=== PATIENT | male | born 1980 | race Caucasian/White ===

== ENCOUNTER 2016-10-12 14:12 | Emergency (ER) | payer OTHER ==
--- NOTE | 2016-10-12 14:47 | ED Physician Documentation ---
History of Present Illness - Stated complaint Stated Complaint: CHEST TIGHTNESS /SOA - Chief complaint Chief Complaint: Cardiac - Additonal information Additional information: hx from pt 36 male prior smoker, fhx CAD but late onset L shoulder pain for a week toda awoke 7 Am with substernal throbbing chest pressure rad to throat and back , some SOA, some palp no fever cough no abd pain NV no LE edema but his job entails sitting for long periods Review of Systems Constitutional: denies: Fever, Chills Throat: denies: Sore throat Cardiac: reports: Chest pain / pressure Respiratory: denies: Dyspnea, Cough GI: denies: Abdominal Pain, Nausea, Vomiting Musculoskeletal: denies: Extremity pain, Extremity swelling Neurologic: denies: Generalized weakness Endocrine: denies: Easy bruising / bleeding Immunocompromised: denies: Immunocompromised PD PAST MEDICAL HISTORY - Past Medical History GI: GERD, Other : Kidney stones - Past Surgical History Past Surgical History: Yes HEENT: Tonsil/Adenoidectomy - Present Medications Home Medications: Ambulatory Orders Medication Instructions Recorded Confirmed Cetirizine HCl/Pseudoephedrine 1 tab PO DAILY 10/12/16 10/12/16 [Zyrtec-D Tablet] - Allergies Allergies/Adverse Reactions: Allergies Allergy/AdvReac Type Severity Reaction Status Date / Time hydromorphone HCl * Allergy Itching Verified 10/12/16 14:19 [From Dilaudid] - Social History Does the pt smoke?: No Smoking Status: Former smoker Does the pt drink ETOH?: Yes Does the pt have substance abuse?: No - Immunizations Immunizations are current?: Yes - POLST Patient has POLST: No PD ED PE NORMAL - Vitals Vital signs reviewed: Yes - General General: Alert and oriented X 3 - HEENT HEENT: Atraumatic - Neck Neck: Supple, no meningeal sign - Cardiac Cardiac: RRR - Respiratory Respiratory: No respiratory distress, Clear bilaterally - Abdomen Abdomen: Soft, Non tender - Extremities Extremities: No deformity, Normal ROM s pain, No edema, No calf tenderness / cord - Neuro Neuro: Alert and oriented X 3 Results - Vitals Vitals: Vital Signs - 24 hr 10/12/16 10/12/16 10/12/16 14:15 15:05 15:13 Temperature 36.8 C Heart Rate 96 82 95 Respiratory 15 14 20 Rate Blood Pressure 144/91 H 116/86 H 117/76 O2 Saturation 99 95 96 10/12/16 10/12/16 15:18 17:41 Temperature 36.4 C L Heart Rate 106 H 80 Respiratory 20 Rate Blood Pressure 113/82 H 111/81 H O2 Saturation 93 98 Oxygen O2 Source Room air - EKG (time done) 1421 Rate: Rate (enter#) Rhythm: NSR Intervals: Normal [place] QRS: Normal Ischemia: Normal ST segments - Labs Labs: Laboratory Tests 10/12/16 10/12/16 10/12/16 14:25 14:25 14:25 WBC 9.8 RBC 5.60 Hgb 16.7 Hct 49.0 MCV 87.5 MCH 29.8 MCHC 34.1 RDW 13.1 Plt Count 221 MPV 8.5 Neut # 7.7 H Lymph # 1.3 L [place] # 0.6 Eos # 0.1 Baso # 0.1 Absolute Nucleated RBC 0.00 Nucleated RBCs 0.0 Sodium 135 Potassium 4.0 Chloride 101 Carbon Dioxide 26 Anion Gap 8.0 BUN 12 Creatinine 1.1 Estimated GFR (MDRD) 76 L Glucose 92 Calcium 9.5 Total Bilirubin 0.7 AST 21 ALT 18 Alkaline Phosphatase 65 Troponin I < 0.04 Total Protein 7.6 Albumin 4.6 Globulin 3.0 Albumin/Globulin Ratio 1.5 Lipase 14 L 10/12/16 16:30 WBC RBC Hgb Hct MCV MCH MCHC RDW Plt Count MPV Neut # Lymph # [place]he # Eos # Baso # Absolute Nucleated RBC Nucleated RBCs Sodium Potassium Chloride Carbon Dioxide Anion Gap BUN Creatinine Estimated GFR (MDRD) Glucose Calcium Total Bilirubin AST ALT Alkaline Phosphatase Troponin I < 0.04 Total Protein Albumin Globulin Albumin/Globulin Ratio Lipase - Rads (name of study) CTPA Radiology: See rad report (no PE no dissection ) Departure - Departure Disposition: 01 Home, Self Care Clinical Impression: Chest pain Condition: Good Instructions: ED Chest Pain Atypical Unkn Cause Comments: All your tests came back fine except the CT scan showed some left ventricular hypertrophy (thickening of the muscle wall) Your EKG and two sets of blood tests for your heart do not suggest a heart attack The CT scan did not show a blood clot in your lungs nor an aneurysm or tear of your aorta. I am not certain what did cause your pain given the reassuring work up and since you feel better now, I think it is safe for you to go home Please follow up with your PMD to discuss getting a stress test and an echocardiogram - given your family history of heart problems these would be a good screening tests for you Return if worse
[2016-10-12] MEDS ORDERED: ASPIRIN CHEW 81 MG TABLET PO STA (14:48)
[2016-10-12] MEDS ORDERED: NITROGLYCERIN SL 0.4 MG TABLET SL STA (14:49)
[2016-10-12] MEDS ORDERED: NITROGLYCERIN SL 0.4 MG TABLET SL ONE ×2 (15:06→15:11)
[2016-10-12] MEDS ORDERED: ASPIRIN CHEW 81 MG TABLET ONE ×2 (15:11→15:16)
[2016-10-12 15:18] LABS: BASOPHILS # (AUTO) 0.1 10^3/uL (0.0-0.1); BASOPHILS % (AUTO) 0.5 %; EOSINOPHILS # (AUTO) 0.1 10^3/uL (0.0-0.7); HGB - HEMOGLOBIN 16.7 g/dL (14.0-18.0); LYMPHOCYTES # (AUTO) 1.3 10^3/uL (1.5-3.5); LYMPHOCYTES % (AUTO) 13.4 %; MEAN CORPUSCULAR HEMOGLOBIN 29.8 pg (27.0-31.0); MEAN CORPUSCULAR HGB CONC 34.1 g/dL (32.0-36.0); MEAN CORPUSCULAR VOLUME 87.5 fL (80.0-94.0); MEAN PLATELET VOLUME 8.5 fL (7.4-11.4); MONOCYTES # (AUTO) 0.6 10^3/uL (0.0-1.0); MONOCYTES % (AUTO) 6.4 %; NEUTROPHILS # (AUTO) 7.7 10^3/uL (1.5-6.6); NEUTROPHILS % (AUTO) 78.7 %; RED CELL DISTRIBUTION WIDTH 13.1 % (12.0-15.0); UNCORRECTED WHITE BLOOD COUNT 9.8 x10^3/uL; WHITE BLOOD COUNT 9.8 x10^3/uL (4.8-10.8)
[2016-10-12 15:22] LABS: ALBUMIN/GLOBULIN RATIO 1.5 (1.0-2.2); BILIRUBIN,TOTAL 0.7 mg/dL (0.2-1.0); CALCIUM 9.5 mg/dL (8.5-10.3); CREATININE 1.1 mg/dL (0.6-1.2); TOTAL PROTEIN 7.6 g/dL (6.7-8.2)
--- NOTE | 2016-10-12 15:46 | XRAY Preliminary Report ---
Exam: XR Chest 2 View PA/LAT IMPRESSION: No acute disease. [facility] SITE ID: [id number]
--- NOTE | 2016-10-12 15:48 | XRAY Report ---
EXAM: CHEST RADIOGRAPHY EXAM DATE: 10/12/2016 03:35 PM. CLINICAL HISTORY: Cp. COMPARISON: None. TECHNIQUE: 2 views. FINDINGS: Lungs/Pleura: No localized infiltrate, consolidation, effusion, or pneumothorax. Mediastinum: Heart and mediastinal contours are unremarkable. Upper lobe vessels not distended. Other: None. IMPRESSION: No acute disease. [facility] Referring Provider Line: [phone] SITE ID: [id number]
[2016-10-12] MEDS ORDERED: IOPAMIDOL-300 100 ML VIAL IVP ONE (17:17)
--- NOTE | 2016-10-12 17:53 | CT Preliminary Report ---
Exam: CT Chest Angio (AORTA) IMPRESSION: 1. Negative for aneurysm, dissection, or pulmonary emboli. No acute disease. 2. Left ventricular hypertrophy. Normal overall heart size. [facility] SITE ID: [id number]
--- NOTE | 2016-10-12 17:55 | CT Report ---
EXAM: CT ANGIOGRAM CHEST EXAM DATE: 10/12/2016 05:17 PM. CLINICAL HISTORY: Severe throbbing CP rad to back eval aorta. COMPARISON: None. TECHNIQUE: Routine helical imaging was performed through the chest in the arterial phase. IV contrast : 100 cc Isovue-300. Reconstructions: Coronal, sagittal, and 3D MIP. FINDINGS: Vascular Structures: Mildly prominent ascending thoracic aorta measuring 3.5 cm. No aneurysm, dissect ion, or significant atherosclerotic disease of the thoracic aorta. The visualized pulmonary arteries are within normal limits. Lungs/Pleura: No consolidation, nodules, or edema. No effusions or pneumothorax. Mediastinum: Normal overall heart size. Left ventricular wall thickening measuring about 18 or 19 mm. No pericardial effusion. No lymphadenopathy. Upper Abdomen: Unremarkable. Other: Mild bilateral gynecomastia. IMPRESSION: 1. Negative for aneurysm, dissection, or pulmonary emboli. No acute disease. 2. Left ventricular hypertrophy. Normal overall heart size. [facility] Referring Provider Line: [phone] SITE ID: [id number]
[2016-10-12 18:36] VITALS: BP 138/78
== END 2016-10-12 18:32 | disposition home or self-care (01) ==
LOC: ED 14:12
DX: R07.89 Other chest pain (principal); Z82.49 Family history of ischemic heart disease and other diseases of the circulatory system; Z87.891 Personal history of nicotine dependence
CPT/HCPCS: 36415; 71020; 71275; 80053; 83690; 84484; 85025; 93005; 99284; A9270; Q9967

== ENCOUNTER 2016-10-13 17:21 | Outpatient (CLI) | payer OTHER | END 2016-10-13 17:22 | disposition short-term general hospital (02) | LOC: EMS 17:21 | PROVIDERS: ATTEND Surgery | DX: R07.9 Chest pain, unspecified (principal) | CPT/HCPCS: A0425; A0427 ==

== ENCOUNTER 2017-12-20 17:47 | Outpatient (CLI) | payer OTHER ==
--- NOTE | 2017-12-20 18:20 | XRAY Report ---
Reason: FALL ON SHOULDER, SWELLING, BRUISING, LIMITED ROM Procedure Date: 12/20/2017 Accession Number: [id number] / [id number] Procedure: XR - Shoulder 3 View LT CPT Code: FULL RESULT: EXAM: LEFT SHOULDER RADIOGRAPHY EXAM DATE: 12/20/2017 06:03 PM. CLINICAL HISTORY: FALL ON SHOULDER, SWELLING, BRUISING, LIMITED ROM. COMPARISON: SHOULDER 3 VIEW LT 02/09/2013 3:01 PM. TECHNIQUE: 3 views. FINDINGS: No acute fracture or dislocation. The glenohumeral joint is intact. There is mild widening of the acromioclavicular interval. No significant elevation or depression of the distal clavicle relative to the acromion. Soft tissues are unremarkable. IMPRESSION: No acute fracture of the left shoulder. Possible ligamentous injury to the acromioclavicular joint. Correlation with focal tenderness on physical exam recommended. [facility]
== END 2017-12-20 17:48 | disposition home or self-care (01) ==
LOC: DI 17:47
PROVIDERS: ATTEND Registered Nurse
DX: S49.92XA Unspecified injury of left shoulder and upper arm, initial encounter (principal)

== ENCOUNTER 2018-12-05 14:50 | Outpatient (CLI) | payer OTHER | END 2018-12-05 14:51 | disposition critical access hospital (66) | LOC: EMS 14:50 | PROVIDERS: ATTEND Surgery | DX: R40.0 Somnolence (principal); R09.89 Other specified symptoms and signs involving the circulatory and respiratory systems | CPT/HCPCS: A0425; A0427 ==

== ENCOUNTER 2018-12-05 15:29 | Emergency (ER) | payer OTHER ==
[2018-12-05 15:57] LABS: MUDS CUTOFF CONCENTRATIONS CUTOFF CONC BELOW:
--- NOTE | 2018-12-05 15:57 | ED Physician Documentation ---
PD HPI MHE - Stated complaint Stated Complaint: ETOH - Chief complaint Chief Complaint: MHE - History obtained from History obtained from: Patient - History of Present Illness Primary symptom: Other ('upset'). No: Suicidal ideation, Suicide attempt Recently seen: Not recently seen - Additional information Additional information: This is a 38-year-old who presents by ambulance with complaints that he is "sad and got upset". He will not answer any questions for me about what happened and why he is upset. He says that he has drank "a little more than a little" alcohol today denies ingesting any medications in an attempt to harm himself although family members indicate that he had told them he had ingested something. Apparently he recently lost someone is very close to him. He works as a network operations manager. He has not recently been ill. Review of Systems Unable to obtain: Uncooperative PD PAST MEDICAL HISTORY - Past Medical History GI: GERD, Other : Kidney stones - Past Surgical History Past Surgical History: Yes HEENT: Tonsil/Adenoidectomy - Present Medications Home Medications: Ambulatory Orders Medication Instructions Recorded Confirmed Cetirizine HCl/Pseudoephedrine 1 tab PO DAILY 10/12/16 10/12/16 [Zyrtec-D Tablet] LORazepam [Ativan] 1 mg PO Q6H PRN #25 tablet 12/06/18 Promethazine [Phenergan] 25 mg PO Q6H PRN #10 tab 12/06/18 - Allergies Allergies/Adverse Reactions: Allergies Allergy/AdvReac Type Severity Reaction Status Date / Time hydromorphone HCl * Allergy Itching Verified 10/12/16 14:19 [From Dilaudid] - Social History Does the pt smoke?: No Smoking Status: Former smoker Does the pt drink ETOH?: Yes Does the pt have substance abuse?: No - Immunizations Immunizations are current?: Yes - POLST Patient has POLST: No PD ED PE NORMAL - Vitals Vital signs reviewed: Yes - General General: Alert and oriented X 3, Well developed/nourished, Other (Smells strongly of alcohol. Tearful) - HEENT HEENT: Atraumatic, PERRL, EOMI, Other (Dry mucous membranes) - Neck Neck: Thyroid normal - Cardiac Cardiac: RRR, No murmur - Respiratory Respiratory: No respiratory distress, Clear bilaterally - Abdomen Abdomen: Normal bowel sounds, Soft, Non tender, Non distended, No organomegaly - Derm Derm: Normal color, Warm and dry, No rash - Extremities Extremities: No deformity, No edema - Neuro Neuro: kaiawhina 2-12 intact, No motor deficit, No sensory deficit, Normal speech - Psych Psych: Other (Depressed mood with crying) Results - Vitals Vitals: Vital Signs - 24 hr 12/06/18 12/06/18 12/06/18 07:06 07:23 08:21 Temperature Heart Rate 77 94 84 Respiratory 22 18 16 Rate Blood Pressure 98/57 L 139/75 H O2 Saturation 96 96 95 12/06/18 12/06/18 09:53 11:00 Temperature 36.8 C 36.5 C Heart Rate 83 80 Respiratory 20 18 Rate Blood Pressure 124/79 123/78 O2 Saturation 97 97 Oxygen O2 Source Room air - EKG (time done) 1544 Rate: Rate (enter#) Rhythm: NSR Intervals: Normal MI Ischemia: Normal ST segments Compare to prior EKG: Old EKG unavailable Computer interpretation: Agree with computer - Labs Labs: Laboratory Tests 12/05/18 12/05/18 12/05/18 15:42 15:56 15:56 WBC 9.3 RBC 5.85 Hgb 18.2 H Hct 53.9 H MCV 92.1 MCH 31.1 H MCHC 33.8 RDW 12.8 Plt Count 316 MPV 9.6 Neut # (Auto) 6.6 Lymph # (Auto) 1.9 Logan # (Auto) 0.6 Eos # (Auto) 0.1 Baso # (Auto) 0.1 Absolute Nucleated RBC 0.00 Nucleated RBC % 0.0 Sodium 144 Potassium 4.0 Chloride 103 Carbon Dioxide 22 Anion Gap 19.0 H BUN 11 Creatinine 1.1 Estimated GFR (MDRD) 75 L Glucose 66 L Calcium 9.3 Total Bilirubin 1.3 H AST 52 H ALT 41 Alkaline Phosphatase 68 Total Protein 7.6 Albumin 4.8 Globulin 2.8 Albumin/Globulin Ratio 1.7 Lipase 27 TSH Urine Color YELLOW Urine Clarity CLEAR Urine pH 6.5 Ur Specific [place] <=1.005 Urine Protein NEGATIVE Urine Glucose (UA) NEGATIVE Urine Ketones NEGATIVE Urine Occult Blood NEGATIVE Urine Nitrite NEGATIVE Urine Bilirubin NEGATIVE Urine Urobilinogen 0.2 (NORMAL) Ur Leukocyte Esterase NEGATIVE Ur Microscopic Review NOT INDICATED Urine Culture Comments NOT INDICATED Salicylates < 6.0 Urine Opiates Screen NEGATIVE Ur Oxycodone Screen NEGATIVE Urine Methadone Screen NEGATIVE Ur Propoxyphene Screen NEGATIVE Acetaminophen < 10 L Ur Barbiturates Screen NEGATIVE Ur Tricyclics Screen NEGATIVE Ur Phencyclidine Scrn NEGATIVE Ur Amphetamine Screen NEGATIVE U Methamphetamines Scrn NEGATIVE U Benzodiazepines Scrn NEGATIVE Urine Cocaine Screen POSITIVE H U Cannabinoids Screen NEGATIVE Ethyl Alcohol 374.3 12/05/18 12/06/18 15:56 07:08 WBC RBC Hgb Hct MCV MCH MCHC RDW Plt Count MPV Neut # (Auto) Lymph # (Auto) Logan # (Auto) Eos # (Auto) Baso # (Auto) Absolute Nucleated RBC Nucleated RBC % Sodium Potassium Chloride Carbon Dioxide Anion Gap BUN Creatinine Estimated GFR (MDRD) Glucose Calcium Total Bilirubin AST ALT Alkaline Phosphatase Total Protein Albumin Globulin Albumin/Globulin Ratio Lipase TSH 0.29 L Urine Color Urine Clarity Urine pH Ur Specific [place] Urine Protein Urine Glucose (UA) Urine Ketones Urine Occult Blood Urine Nitrite Urine Bilirubin Urine Urobilinogen Ur Leukocyte Esterase Ur Microscopic Review Urine Culture Comments Salicylates Urine Opiates Screen Ur Oxycodone Screen Urine Methadone Screen Ur Propoxyphene Screen Acetaminophen Ur Barbiturates Screen Ur Tricyclics Screen Ur Phencyclidine Scrn Ur Amphetamine Screen U Methamphetamines Scrn U Benzodiazepines Scrn Urine Cocaine Screen U Cannabinoids Screen Ethyl Alcohol 38.5 PD MEDICAL DECISION MAKING - ED course Complexity details: reviewed results, re-evaluated patient, d/w patient, d/w family ED course: Patient CBC is normal. His blood glucose is 66 we will see if he will eat something. Mild elevation of AST. His TSH is a little low at 0.29. His blood alcohol levels 370 and drug screens positive for cocaine. Patient has an IV going with IV fluids and will need to be reevaluated when he is no longer intoxicated, which will be several hours from now. The patient's friend did bring in his phone that show the text messages stating that he had intentionally tried to harm himself. He was placed on a hold by social media marketing analyst until he can be evaluated when he is no longer intoxicated. Patient reports that he does not want to eat. He wants to be discharged because he feels like he is taking up a bed and someone needs more importantly than him. We discussed that he will need to stay until the morning and he is agreeable. I did put him on D5 half-normal since he will not eat. Patient pulled out his IV and we could not hang the D5 half-normal because he refused to have it restarted. An Accu-Chek was done that showed 66 and he did agree to eat a sandwich and drink some juice. Care turned over to Dr Farley awaiting patient to sober up. Departure - Departure Disposition: 01 Home, Self Care Clinical Impression: Depression, Alcoholic intoxication, Suicidal ideation Condition: Stable Instructions: ED Depression, ED Alcohol Intoxication Follow-Up: Nicole Anthony ARNP [Primary Care Provider] - Prescriptions: LORazepam [Ativan] 1 mg PO Q6H PRN #25 tablet PRN Reason: Alcohol Withdrawal Promethazine [Phenergan] 25 mg PO Q6H PRN #10 tab PRN Reason: Nausea / Vomiting Comments: Avoid excess alcohol. Preferably try to stop drinking and seek help for alcohol cessation through treatment programs and AA. If you decide to stop drinking, to help with the withdrawal symptoms I wrote a prescription for some Ativan to use every 6 hours as needed to help with the tremors and withdrawal. Add promethazine if needed for nausea. Stay well-hydrated. Use the Ativan to the degree you need to help decrease withdrawal symptoms but not to become sedated. Try to decrease the amount used over several days to week as you overcome the withdrawal time.. Follow-up with your primary care regarding further treatment of that. Follow-up with counseling to help with your depression. Discharge Date/Time: 12/06/18 11:15
[2018-12-05 16:01] LABS: BASOPHILS # (AUTO) 0.1 10^3/uL (0.0-0.1); BASOPHILS % (AUTO) 1.2 %; EOSINOPHILS # (AUTO) 0.1 10^3/uL (0.0-0.7); EOSINOPHILS % (AUTO) 1.5 %; HGB - HEMOGLOBIN 18.2 g/dL (14.0-18.0); LYMPHOCYTES # (AUTO) 1.9 10^3/uL (1.5-3.5); LYMPHOCYTES % (AUTO) 20.4 %; MEAN CORPUSCULAR HEMOGLOBIN 31.1 pg (27.0-31.0); MEAN CORPUSCULAR HGB CONC 33.8 g/dL (32.0-36.0); MEAN CORPUSCULAR VOLUME 92.1 fL (80.0-94.0); MEAN PLATELET VOLUME 9.6 fL (7.4-11.4); MONOCYTES # (AUTO) 0.6 10^3/uL (0.0-1.0); NEUTROPHILS # (AUTO) 6.6 10^3/uL (1.5-6.6); NEUTROPHILS % (AUTO) 70.5 %; PLT - PLATELET COUNT 316 10^3/uL (130-450); RED BLOOD COUNT 5.85 10^6/uL (4.70-6.10); RED CELL DISTRIBUTION WIDTH 12.8 % (12.0-15.0); WHITE BLOOD COUNT 9.3 x10^3/uL (4.8-10.8)
[2018-12-05 16:04] LABS: BILIRUBIN,URINE NEGATIVE (NEGATIVE); GLUCOSE, URINE (UA) NEGATIVE (NEGATIVE); KETONES,URINE (UA) NEGATIVE (NEGATIVE); LEUKOCYTE ESTERASE, URINE NEGATIVE (NEGATIVE); NITRITE,URINE NEGATIVE (NEGATIVE); OCCULT BLOOD,URINE NEGATIVE (NEGATIVE); PH,URINE 6.5 PH (5.0-7.5); PROTEIN,URINE NEGATIVE (NEGATIVE); UROBILINOGEN,URINE 0.2 (NORMAL) E.U./dL (NORMAL)
[2018-12-05 16:08] LABS: CLARITY,URINE CLEAR (CLEAR)
[2018-12-05 16:16] LABS: ACETAMINOPHEN < 10 ug/mL (10-30); ALBUMIN 4.8 g/dL (3.2-5.5); ALBUMIN/GLOBULIN RATIO 1.7 (1.0-2.2); ALKALINE PHOSPHATASE 68 IU/L (42-121); ALT ALANINE AMINOTRANSFERASE 41 IU/L (10-60); AST ASPARTATE AMINOTRANSFERASE 52 IU/L (10-42); BILIRUBIN,TOTAL 1.3 mg/dL (0.2-1.0); BUN - BLOOD UREA NITROGEN 11 mg/dL (6-20); CALCIUM 9.3 mg/dL (8.5-10.3); CARBON DIOXIDE - CO2 22 mmol/L (21-32); CHLORIDE 103 mmol/L (101-111); CREATININE 1.1 mg/dL (0.6-1.2); GFR - MDRD 75 (>89); GLUCOSE 66 mg/dL (70-100); LIPASE 27 U/L (22-51); SALICYLATE < 6.0 mg/dL; SODIUM 144 mmol/L (135-145); TOTAL PROTEIN 7.6 g/dL (6.7-8.2)
[2018-12-05 16:19] LABS: AMPHETAMINE SCREEN,URINE NEGATIVE (NEGATIVE); BENZODIAZEPINES SCREEN, URINE NEGATIVE (NEGATIVE); COCAINE SCREEN URINE POSITIVE (NEGATIVE); METHADONE SCREEN, URINE NEGATIVE (NEGATIVE); METHAMPHETAMINES SCREEN, URINE NEGATIVE (NEGATIVE); OPIATE SCREEN, URINE NEGATIVE (NEGATIVE); OXYCODONE SCREEN, URINE NEGATIVE (NEGATIVE); PROPOXYPHENE SCREEN, URINE NEGATIVE (NEGATIVE); TRICYCLIC ANTIDEPRESSANT,URINE NEGATIVE (NEGATIVE)
[2018-12-05] MEDS ORDERED: DEXTROSE 5%-0.45% NACL 1,000 ML IV ONE (20:29)
[2018-12-06] MEDS ORDERED: ONDANSETRON ODT 4 MG TABLET TL STA (07:54)
[2018-12-06] MEDS ORDERED: FAMOTIDINE 20 MG TABLET PO STA (07:54)
[2018-12-06] MEDS ORDERED: LORazepam 1 MG TABLET PO STA (09:05)
[2018-12-06] MEDS ORDERED: LORazepam 2 MG/ML VIAL IM STA (09:56)
[2018-12-06] MEDS ORDERED: cloNIDine 0.1 MG TABLET PO STA (09:56)
[2018-12-06] MEDS ORDERED: PROMETHAZINE 25 MG TABLET PO STA (09:57)
--- NOTE | 2018-12-06 10:23 | ED Physician Documentation ---
ED Addendum - Addendum Addendum: 12/06/18 10:21 The patient is sober now. He started to have some tremors and will be given some Ativan. He was seen by social work and denies any suicidal ideation at this time. He does not feel that he is ready to stop drinking regularly. He will be given information regarding alcohol treatment programs in the area. I offered him a prescription for Ativan should he decide to try to stop drinking in the short-term. He is suggested to avoid excess alcohol at his as it is a mood enhancer and will worsen his depression. He is offered to seek counseling and primary care treatment. He will be given information by social work. Diagnoses alcohol intoxication #2 depression #3 suicidal ideation, improved Disposition the patient be discharged home in stable condition.
[2018-12-06 11:01] VITALS: BP 123/78
== END 2018-12-06 11:15 | disposition home or self-care (01) ==
LOC: EDUNIT# → ED 15:29
DX: F32.9 Major depressive disorder, single episode, unspecified (principal); R45.851 Suicidal ideations; F10.929 Alcohol use, unspecified with intoxication, unspecified; Y90.8 Blood alcohol level of 240 mg/100 ml or more; F14.90 Cocaine use, unspecified, uncomplicated; R25.1 Tremor, unspecified; Z87.891 Personal history of nicotine dependence
CPT/HCPCS: 36415; 80320; 80329; 81003; 83690; 93005; 99281; 99284; A9270; J2060; J8499; Q0162; Q0169; 80053; 80306; 80307; 81001; 84443; 85025; 87086

== ENCOUNTER 2020-06-24 15:31 | Outpatient (CLI) | payer OTHER | END 2020-06-24 15:32 | disposition critical access hospital (66) | LOC: EMS 15:31 | DX: T17.290A Other foreign object in pharynx causing asphyxiation, initial encounter (principal) | CPT/HCPCS: A0425; A0429 ==

== ENCOUNTER 2020-06-24 15:57 | Emergency (ER) | payer OTHER ==
--- OUTSIDE RECORDS SUMMARY | 2020-06-24 16:29 | EXTERNAL MEDICAL SUMMARY RPT | Continuity of Care Document ---
:1980 Demographics Phone Unavailable Preferred Language Unknown Marital Status Unknown [employer] Affiliation Unknown Race Unknown Ethnic Group Unknown Author Organization [facility] Address [address] [id number] Phone Social History date description facility [id number]
[2020-06-24] MEDS ORDERED: SODIUM CHLORIDE 0.9% 1,000 ML IV STA (16:32)
[2020-06-24] MEDS ORDERED: GLUCAGON 1 MG/ML VIAL IVP STA (16:33)
--- NOTE | 2020-06-24 16:33 | ED Physician Documentation ---
History of Present Illness - Stated complaint Stated Complaint: POST CHOKING - Chief complaint Chief Complaint: General - History obtained from History obtained from: Patient, EMS - Additonal information Additional information: 39-year-old with chronic constipation was taking his usual 10 caplets of 500 mg of Metamucil all at once today and felt like it got stuck. Now he is not able to tolerate his secretions but able to talk fine. This happened last year and he was able to fix it with drinking a big jug of water. He did not need to seek medical attention at that time. No health problems. Review of Systems Constitutional: denies: Fever, Chills Cardiac: denies: Palpitations Respiratory: denies: Dyspnea, Cough PD PAST MEDICAL HISTORY - Past Medical History Cardiovascular: None Respiratory: None Neuro: None Endocrine/Autoimmune: None GI: GERD, Other : Kidney stones HEENT: None Psych: None Musculoskeletal: None Derm: None - Past Surgical History Past Surgical History: Yes HEENT: Tonsil/Adenoidectomy - Present Medications Home Medications: Ambulatory Orders Medication Instructions Recorded Confirmed Doxycycline Monohydrate [Avidoxy] 100 mg PO DAILY 06/24/20 06/24/20 - Allergies Allergies/Adverse Reactions: Allergies Allergy/AdvReac Type Severity Reaction Status Date / Time hydromorphone HCl * Allergy Itching Verified 10/12/16 14:19 [From Dilaudid] - Social History Does the pt smoke?: No Smoking Status: Former smoker Does the pt drink ETOH?: Yes Does the pt have substance abuse?: No - Immunizations Immunizations are current?: Yes - POLST Patient has POLST: No PD ED PE NORMAL - Vitals Vital signs reviewed: Yes - General General: Alert and oriented X 3, Other (He appears uncomfortable and is spitting into a bag.) - Cardiac Cardiac: RRR, No murmur - Respiratory Respiratory: No respiratory distress, Clear bilaterally - Abdomen Abdomen: Non tender - Neuro Neuro: Alert and oriented X 3, Normal speech Results - Vitals Vitals: Vital Signs - 24 hr 06/24/20 06/24/20 06/24/20 16:01 16:53 17:03 Temperature 36.7 C Heart Rate 116 H 76 92 Respiratory 20 20 18 Rate Blood Pressure 154/100 H 135/107 H 137/86 H O2 Saturation 97 97 97 06/24/20 17:46 Temperature Heart Rate 90 Respiratory 16 Rate Blood Pressure 124/90 H O2 Saturation 96 Oxygen O2 Source Room air PD MEDICAL DECISION MAKING - ED course ED course: This young man has a recurrent esophageal food impaction. We trialed glucagon and nitroglycerin here without relief and still been able to tolerate his secretions. I spoke with the on-call surgeon, Dr. Lama at 5:50 PM and she will come in and see the patient. Departure - Departure Disposition: ED Transfer to [facility] Clinical Impression: Impacted esophageal foreign body Qualifiers: Encounter type: initial encounter Qualified Code(s): T18.108A - Unspecified foreign body in esophagus causing other injury, initial encounter Condition: Stable
--- NOTE | 2020-06-24 16:59 | XRAY Report ---
PROCEDURE: Chest 1 View X-Ray INDICATIONS: aspiration TECHNIQUE: One view of the chest was acquired. COMPARISON: 10/12/2016 FINDINGS: Surgical changes and devices: None. Lungs and pleura: No pleural effusions or pneumothorax. Lungs are clear. Mediastinum: Mediastinal contours appear normal. Heart size is normal. Bones and chest wall: No suspicious bony lesions. Overlying soft tissues appear unremarkable. IMPRESSION: No acute cardiopulmonary pathology. Reviewed by: Louis Liriano MD on 06/24/2020 3:57 PM [facility] Approved by: Louis Liriano MD on 06/24/2020 3:57 PM [facility] Station ID: [id number]
[2020-06-24] MEDS ORDERED: NITROGLYCERIN SL 0.4 MG TABLET SL STA (17:17)
[2020-06-24] MEDS ORDERED: LORazepam 2 MG/ML VIAL IVP STA (17:51)
--- NOTE | 2020-06-24 18:46 | HISTORY & PHYSICAL EXAMINATION ---
HPI - Admitted From Admitted from: ED - History Obtained From History obtained from: Patient, Other (Other providers) Exam limitations: No limitations - History of Present Illness HPI Comment/Other: Raymond is a 39-year-old gentleman who suffers from chronic constipation. He reports he takes 10 Metamucil tablets every day to control his constipation. He generally takes them all at once. This morning he took those 10 Metamucil tablets and they did not go down. He also took some vitamins on top of that and some antibiotics and then had a tuna sandwich which have all not settled well. He is all he is presented to the emergency room not able to swallow his own he is spitting into an emesis bag but he is able to talk without difficulty. He reports that this is happened 1 time in the past but he was able to eat and drink other things and get the Metamucil to go down which is why he continued to try to eat things on top of this obstruction once it occurred.He denies any subsequent past medical history. PMH/PSH - Past Medical History Cardiovascular: positive: None Respiratory: positive: None Neuro: positive: None Endocrine/Autoimmune: positive: None GI: positive: GERD, Other : positive: Kidney stones HEENT: positive: None Psych: positive: None Musculoskeletal: positive: None Derm: positive: None MRSA Hx?: No - Past Surgical History HEENT: positive: Tonsil/Adenoidectomy Social & Family Hx - Living Situation Living Arrangement: At home - Social History Does the pt smoke?: No Smoking Status: Never smoker Does the pt drink ETOH?: Yes Does the pt have substance abuse?: No - POLST Patient has POLST: No Meds/Allgy - Home Medications Home Medications: Ambulatory Orders Medication Instructions Recorded Confirmed Doxycycline Monohydrate [Avidoxy] 100 mg PO DAILY 06/24/20 06/24/20 - Allergies Allergies/Adverse Reactions: Allergies Allergy/AdvReac Type Severity Reaction Status Date / Time hydromorphone HCl * Allergy Itching Verified 10/12/16 14:19 [From Dilaudid] Review of Systems - All Other Systems All Other Systems: reports: Reviewed and negative - Other Findings Other Findings: All of the review of systems is negative with the exception of the inability to swallow Exam - Vital Signs Reviewed Vital Signs: Yes Vital Signs: Vital Signs x48h Temp Pulse Resp BP Pulse Ox 06/24/20 18:15 88 16 114/96 H 94 06/24/20 17:46 90 16 124/90 H 96 06/24/20 17:03 92 18 137/86 H 97 06/24/20 16:53 76 20 135/107 H 97 06/24/20 16:01 36.7 C 116 H 20 154/100 H 97 - Physical Exam General Appearance: positive: Alert, Mild distress Eyes Bilateral: positive: Normal inspection, PERRL ENT: positive: ENT inspection nml, Pharynx nml, No signs of dehydration Neck: positive: Nml inspection, Thyroid nml, Trachea midline Respiratory: positive: No respiratory distress, Breath sounds nml Cardiovascular: positive: Regular rate & rhythm Peripheral Pulses: positive: 0 Results - Diagnostic Imaging Results Diagnostic Imaging Results Comments: Chest x-ray does not show any acute cardiopulmonary pathology - EKG Results EKG Interpreted Independently: No Impression/Plan - Problem List Problem List: Esophageal foreign body in the setting of a generally healthy 39-year-old man with no chronic medical problems that we have identified. We have discussed the risks and benefits of EGD for foreign body removal these risks include infection, bleeding, perforation of the esophagus, inability to remove the obstruction, and complications of anesthesia such as stroke, and heart attack. With all of these things considered, the patient is expressed a desire to have the procedure.
[2020-06-24] MEDS ORDERED: LACTATED RINGERS 1,000 ML IV ONE (19:30)
--- NOTE | 2020-06-24 19:38 | ANESTHESIA ---
Pre-Anesthesia VS, & Labs - Diagnosis foreign body - Procedure EGD with foreign body removal Vital Signs: Temp Pulse Resp BP Pulse Ox 36.7 C 99 20 115/83 H 100 06/24/20 16:01 06/24/20 19:30 06/24/20 19:30 06/24/20 19:30 06/24/20 19:30 Height: 5 ft 11 in Weight (kg): 90.718 kg Body Mass Index: 27.8 BMI Classification: Overweight - NPO Other Last Fluid Intake: less than 1 hr Last Food Intake: less than 4 hours Home Medications and Allergies Home Medications: Ambulatory Orders Doxycycline Monohydrate [Avidoxy] 100 mg PO DAILY 06/24/20 Doxycycline Monohydrate [Avidoxy] 100 mg PO DAILY 06/24/20 Allergies/Adverse Reactions: Allergies Allergy/AdvReac Type Severity Reaction Status Date / Time hydromorphone HCl * Allergy Itching Verified 10/12/16 14:19 [From Dilaudid] Anes History & Medical History - Anesthetic History Anesthesia Complications: reports: No previous complications Family history of Anesthesia Complications: Denies Family history of Malignant Hyperthermia: Denies - Medical History Cardiovascular: reports: None Pulmonary: reports: None Gastrointestinal: reports: GERD, Other Urinary: reports: Kidney stones Neuro: reports: None Musculoskeletal: reports: None Endocrine/Autoimmune: reports: None Blood Disorders: reports: None Skin: reports: None Smoking Status: Never smoker - Surgical History Eyes Ears Nose Throat (EENT): reports: Tonsil/Adenoidectomy Exam General: Alert, Oriented x3, Cooperative Dental: Poor dentition Mouth Openin Fingerbreadth Neck Mobility: Normal Mallampati classification: II Thyromental Distance: 4-6 cm Respiratory: Lungs clear Cardiovascular: Regular rate Abdomen: Normal bowel sounds Extremities: No clubbing Neurological: Normal gait Mental/Cognitive Status: Alert/Oriented X3 Cognitive Status: Within normal limits Plan Anesthesia Type: General Consent for Procedure(s) Verified and Reviewed: Yes Code Status: Attempt Resuscitation ASA classification: 2-Mild systemic disease Is this case an emergency?: Yes (RSI)
--- NOTE | 2020-06-24 19:43 | ANESTHESIA POST OP EVALUATION ---
Anesthesia Post Eval - Post Anesthesia Eval Vitals: Last Vital Signs Temp 37 C 06/24/20 19:27 Pulse 99 06/24/20 19:30 Resp 20 06/24/20 19:30 BP 115/83 H 06/24/20 19:30 Pulse Ox 100 06/24/20 19:30 CV Function Including HR & BP: Stable Pain Control: Satisfactory Nausea & Vomiting: Negative Mental Status: Baseline Respiratory Status: Airway Patent Hydration Status: Satisfactory Anesthesia Complications: None
[2020-06-24 20:02] VITALS: BP 110/83
== END 2020-06-24 18:49 ==
LOC: EDUNIT# → ED 15:57
DX: T18.198A Other foreign object in esophagus causing other injury, initial encounter (principal); X58.XXXA Exposure to other specified factors, initial encounter; K20.90 Esophagitis, unspecified without bleeding; Z87.891 Personal history of nicotine dependence
CPT/HCPCS: 71045; 96374; 96375; 99284; 99285; A9270; J2060; J7120

== ENCOUNTER 2020-06-25 04:39 | Outpatient (CLI) | payer OTHER | END 2020-06-25 04:40 | disposition short-term general hospital (02) | LOC: EMS 04:39 | DX: R55 Syncope and collapse (principal); R15.9 Full incontinence of feces; R19.5 Other fecal abnormalities | CPT/HCPCS: A0425; A0427 ==